=== PATIENT | female | born 1960 | race Caucasian/White ===

== ENCOUNTER 2025-01-24 08:38 | Emergency (ER) | payer OTHER, MEDICARE, SELFPAY ==
--- NOTE | ~2025-01-24 | XR_ITS ---
EXAMINATION: XR foot LT min 3V DATE: 01/24/2025 09:04 INDICATION: Lateral left foot pain post injury TECHNIQUE: Dorsoplantar, two oblique and lateral views of the left foot were obtained. COMPARISON: None. FINDINGS: Diffuse osteopenia. Bone alignment is normal. Lag screw and washer fixation at the medial malleolus l ikely for fixation of an old healed fracture, now essentially indiscernible. No acute fractures ident ified. Mild polyarticular osteoarthritis at the calcaneocuboid and multiple joints in the mid and for efoot. Small plantar calcaneal spur. Soft tissues are unremarkable aside from scattered vascular calc ifications. No ankle joint effusion. IMPRESSION: 1. Lag screw fixation of a likely old healed medial malleolar fracture. No acute osseous abnormality. 2. Diffuse osteopenia and mild polyarticular osteoarthritis at the left foot. Reviewed, dictated and finalized at location A. IMPRESSION: 1. Lag screw fixation of a likely old healed medial malleolar fracture. No acut e osseous abnormality. 2. Diffuse osteopenia and mild polyarticular osteoarthritis at the left foot.
[2025-01-24 08:55] VITALS: BP 134/63; PULSE 74; RESP 16; TEMP 36.7; O2SAT 100
--- NOTE | 2025-01-24 09:14 | ED.LOWEXIN ---
HPI - Extremity Injury (Lower) General Chief Complaint: Extremity Injury, Lower Stated Complaint: Left Foot Pain Time Seen by Provider: 01/24/25 09:00 Source: patient, family (Daughter) and RN notes reviewed Mode of arrival: ambulatory Limitations: no limitations History of Present Illness HPI Narrative: Patient presents today complaining left lateral foot pain and pain over the base of the toes, after rolling her foot 2 days ago. She became dizzy when walking after not eating and fell rolling her foot. Denies numbness or tingling in the foot or ankle. Currently rates her pain 8/10 and has tried no OTC treatment prior to arrival. Patient has history of end-stage renal disease on dialysis, is currently trying to get back on the kidney transplant list. History of liver transplant in 2019, insulin-dependent diabetes. Related Data Home Medications ?Medication ?Instructions ?Recorded ?Confirmed ?Last Taken ?Type calcium acetate(phosphat bind) 667 667 mg PO ONCE 01/24/25 01/24/25 Unknown History mg capsule carvedilol 12.5 mg tablet mg 01/24/25 Unknown History esomeprazole magnesium 40 mg mg 01/24/25 Unknown History capsule,delayed release estradiol 0.01% (0.1 mg/gram) vaginal 01/24/25 Unknown History vaginal cream insulin lispro 100 unit/mL 01/24/25 Unknown History subcutaneous solution (Admelog U-100 Insulin lispro) mycophenolate sodium 360 mg mg PO 01/24/25 Unknown History tablet,delayed release ondansetron HCl 8 mg tablet mg 01/24/25 Unknown History sertraline 25 mg tablet mg 01/24/25 Unknown History tacrolimus 1 mg capsule, mg 01/24/25 Unknown History immediate-release vitamin B complex-vitamin C-folic tablet 01/24/25 Unknown History acid 5 mg tablet (Folbee Plus) Allergies Allergy/AdvReac Type Severity Reaction Status Date / Time adhesive Allergy Intermediate Rash Verified 01/24/25 09:16 clindamycin Allergy Intermediate rash Verified 01/24/25 09:16 lisinopril Allergy Intermediate Swelling Verified 01/24/25 09:16 of Lip/Tongue/Throat Sulfa (Sulfonamide Allergy Intermediate other Verified 01/24/25 09:16 Antibiotics) [facility] Past Medical History Medical History (Updated 01/24/25 @ 09:32 by Darleen Morrow, [employer], ) Thalassemia Pernicious anemia Atrophic gastritis Osteoporosis Pulmonary hypertension Diabetes Dialysis patient End stage renal disease Surgical History Surgical History (Updated 01/24/25 @ 09:20 by Darleen Morrow, [facility], ) History of cholecystectomy History of liver transplant Comments At time of signature, I have reviewed and agree with nursing past medical, surgical, social and family history unless otherwise noted. Please see nursing chart for further information. There is no relevant family history pertinent to the presenting complaint Exam Narrative: GENERAL: Chronically ill-appearing, well-nourished, and in no acute distress. Generalized skin pallor HEAD: Normocephalic, atraumatic. EYES: EOMI. No redness or drainage. Conjunctivae normal. ENT: Mucous membranes pink and moist. NECK: Normal AROM. CHEST: No respiratory distress. EXTREMITIES: Left foot: Tenderness along the lateral foot and the base of the toes. Ecchymosis at the base of the 5th toe. Localized edema to the lateral malleolus without tenderness or pain. Distal sensation intact in all 5 toes. Capillary refill normal. Pedal pulse normal. Color normal at the remainder of the foot. SKIN: Warm, dry, no rash. Capillary refill normal. Normal skin turgor. NEURO: No focal deficits. Alert and oriented x3. Gait steady with walker. PSYCH: Normal affect. No signs of depression or anxiety. Course Course Level of Care: Express Care Visit Vital Signs Vital signs: Vital Signs Temperature 98.1 F 01/24/25 08:55 Pulse Rate 74 01/24/25 08:55 Respiratory Rate 16 01/24/25 08:55 Blood Pressure 134/63 01/24/25 08:55 Pulse Oximetry 100 01/24/25 08:55 Temperature 98.1 F 01/24/25 08:55 Pulse Rate 74 01/24/25 08:55 Respiratory Rate 16 01/24/25 08:55 Blood Pressure 134/63 01/24/25 08:55 Pulse Oximetry 100 01/24/25 08:55 Reviewed MDM - Extremity Injury (Lower) MDM Narrative Medical decision making narrative: 64-year-old female patient presents today with an injury to the left foot that was sustained 2 days ago when she became dizzy and rolled the foot. Upon exam, the lateral foot is tender as well as the base of the toes, and there is bruising at the base of the 5th toe. Neurovascularly intact. X-rays negative for acute fracture. Patient is placed in a postop shoe for stability. Patient will follow-up with PCP or orthopedics in 7-10 days if symptoms are not improving. Vital signs stable. Patient agrees with plan. Anticipatory guidance given. Differential Diagnosis Differential diagnosis: Likely other (Foot fracture, toe fracture, foot sprain, contusion) Imaging Data Radiologist's impression: ITS Impressions Foot X-Ray 01/24/25 09:19 IMPRESSION: 1. Lag screw fixation of a likely old healed medial malleolar fracture. No acute osseous abnormality. 2. Diffuse osteopenia and mild polyarticular osteoarthritis at the left foot. Critical Care Time Critical Care Time Critical Care Time: No Discharge Plan Discharge Clinical Impression: Sprain of foot, left Qualifiers: Encounter type: initial encounter Qualified Code(s): S93.602A - Unspecified sprain of left foot, initial encounter Patient Disposition: Home Condition: Stable Instructions: Foot Sprain (ED) Additional Instructions: Your x-ray is negative for fracture. Wear the postop shoe for comfort and stability. Elevate and ice the foot. Take Tylenol for pain if needed. Follow-up with your PCP orthopedics in 7-10 days if symptoms are not improving. Patient Language: Faroese Prescriptions: No Action carvedilol 12.5 mg tablet esomeprazole magnesium 40 mg capsule,delayed release(DR/EC) sertraline 25 mg tablet insulin lispro [Admelog U-100 Insulin lispro] 100 unit/mL solution tacrolimus 1 mg capsule mycophenolate sodium 360 mg tablet,delayed release (DR/EC) PO Folbee Plus 5 mg tablet ondansetron HCl 8 mg tablet estradiol 0.01 % (0.1 mg/gram) cream VAGINAL calcium acetate(phosphat bind) 667 mg capsule 667 mg PO ONCE Follow-up/Referrals: Adiel Underwood MD [Physician] - Kvng Gutierrez DO [Primary Care Provider] - Time of Disposition: 09:32
== END 2025-01-24 12:00 | disposition home or self-care (01) ==
PROVIDERS: Emergency Provider Nurse Practitioner; PCP Internal Medicine
DX: S93.602A Unspecified sprain of left foot, initial encounter (principal); X50.9XXA Other and unspecified overexertion or strenuous movements or postures, initial encounter; D56.9 Thalassemia, unspecified; E11.22 Type 2 diabetes mellitus with diabetic chronic kidney disease; N18.6 End stage renal disease; Z99.2 Dependence on renal dialysis; Z79.4 Long term (current) use of insulin; M81.0 Age-related osteoporosis without current pathological fracture; I27.20 Pulmonary hypertension, unspecified; Z94.4 Liver transplant status
CPT/HCPCS: 73630; 99213; G0463